=== PATIENT | male | born 1945 | race Caucasian/White ===

== ENCOUNTER 2024-03-07 02:31 | Observation (INO) | payer MEDICARE, OTHER, SELFPAY ==
[2024-03-06 21:23] VITALS: BP 141/70
[2024-03-06 22:47] LABS: % Basophils 0.9 % (0-2); % Eosinophils 2.5 % (0-6); % Immature Granulocytes 0.4 % (0-0.5); % Monocytes 7.9 % (1.7-9.3); % Neutrophils 43.3 % (42.2-75.2); Absolute Basophils 0.1 10^3/uL (0-0.2); Absolute Eosinophils 0.2 10^3/uL (0-0.7); Absolute Lymphocytes 3.4 10^3/uL (1.2-3.4); Absolute Monocytes 0.6 10^3/uL (0.1-0.6); Absolute Neutrophils 3.2 10^3/uL (1.4-6.5); Hematocrit 34.7 % (39.0-52.0); Hemoglobin 12.4 g/dL (13.0-18.0); Mean Corp Hgb Conc. 35.7 g/dL (33.0-37.0); Mean Corpuscular Hgb 33.4 pg (27.0-31.0); Mean Corpuscular Volume 93.5 fL (80.0-94.0); Mean Platelet Volume 8.9 fL (7.4-10.4); Nucleated Red Blood Cells % 0 % (-); Platelet Count 193 10^3/uL (130-400); Red Blood Cell Count 3.71 10^6/uL (4.70-6.10); Red Cell Dist. Width 12.6 % (11.5-14.5); White Blood Cell Count 7.5 10^3/uL (4.8-10.8)
[2024-03-06 23:10] LABS: Troponin I < 0.012 ng/ml
[2024-03-06 23:16] LABS: ALT (SGPT) 22 U/L (0-50); AST (SGOT) 36 U/L (17-59); Albumin 4.1 g/dl (3.5-5.0); Alkaline Phosphatase 91 U/L (38-126); Blood Urea Nitrogen 24 mg/dl (9-20); Calcium 9.2 mg/dl (8.4-10.2); Carbon Dioxide 23 mmol/L (22-30); Chloride 108 mmol/L (98-107); Glucose 105 mg/dl (70-99); Potassium 5.1 mmol/L (3.5-5.1); Sodium 139 mmol/L (135-145); Total Bilirubin 0.5 mg/dl (0.2-1.3); Total Protein 6.8 g/dl (6.3-8.2); eGFR > 60.00
[2024-03-06 23:20] VITALS: BP 119/64
[2024-03-07] MEDS: ASPIRIN 325 MG PO (00:07)
--- NOTE | 2024-03-07 00:23 | ED.GENMED ---
History of Present Illness
General
Chief Complaint: Chest Pain
Source: patient and spouse
Exam Limitations: none
Time Seen by Provider: 03/06/24 22:37
Nursing documentation reviewed up to this point in time: agreed with
History of Present Illness
History of Present Illness:
78-year-old male past medical history of Alzheimer's previous stroke with ongoing expressive aphasia, hypertension hyperlipidemia presenting to the emergency department today with concerns of intermittent chest pain today seems to be worse with
exertion but now sometimes without exertion. Does have a history of angina medication for this, patient believes its Imdur. This progressing over the last few days specifically worsened today. Denies specific shortness of breath nausea vomiting
diaphoresis.
Past History
Past History
ED Past Medical History: Cancer, CVA (With residual expressive aphasia), HTN and Hypercholesterolemia
ED Past Surgical History: Appendectomy and Other (prostate)
Social History
Tobacco: Former smoker
Alcohol: Occasional
Personal:
Living: with family
Employment: Retired
Family History
Family History: Other (His father had a stroke)
Review of Systems
Review of Systems
Allergies reviewed?: Yes
All Other Systems: ROS reviewed and negative except as documented in HPI and ROS
Phy Exam
Physical Exam
Physical Exam:
GENERAL: Alert , in no apparent distress
EYE: pupils equal and reactive
NECK: Supple, no significant adenopathy.
ENT: o/p clr, mmm.
CARDIAC: Regular rate and rhythm .
LUNGS: Clear breath sounds bilaterally, no acute respiratory distress, no wheezes/rales/rhonchi
ABDOMEN: Soft, without focal tenderness, no r/g, no cvat
NEUROLOGICAL: Alert and oriented, no focal neuro deficits
SKIN: Warm and dry, skin intact.
MUSCULOSKELETAL: No edema, well perfused.
PSYCH: Normal and appropriate interaction.
Scores
Heart Score for Chest Pain Patients
STEMI patient?: No
History: Moderately Suspicious
ECG: Nonspecific Repolarization
Age: >/= 65 years
Risk Factors: >/= 3 Risk Factors or History of CAD
Troponin: </= Normal Limit
Heart Score for Chest Pain Patients: 6
Heart Score Risk: 20.3% MACE over next 6 weeks
Course
Orders/Labs/Results
Orders:
Orders
03/06/24 21:20
Electrocardiogram (*1) Urgent
Reason for Study: Chest Pain
EKG- Treatment ONCE
03/06/24 21:29
CR Chest - 2 Views Urgent
Comment:
Reason For Exam: chest pain
03/06/24 22:39
CMP [Comprehensive Metabolic Panel] Urgent
Complete Blood Count/With Diff Urgent
Troponin I Urgent
03/06/24 23:57
Aspirin 325 mg PO NOW STA
Abnormal Lab Results
03/06/24
22:39
RBC 3.71 L 10^6/uL
(4.70-6.10)
Hgb 12.4 L g/dL
(13.0-18.0)
Hct 34.7 L %
(39.0-52.0)
MCH 33.4 H pg
(27.0-31.0)
Chloride 108 H mmol/L
(98-107)
BUN 24 H mg/dl
(9-20)
Glucose 105 H mg/dl
(70-99)
03/06/24 22:39
03/06/24 22:39
Vital Signs
Initial and Last Documented VS:
Initial Vital Signs
Temp Pulse Resp BP Pulse Ox
98 F 68 22 141/70 98
03/06/24 21:23 03/06/24 21:23 03/06/24 21:23 03/06/24 21:23 03/06/24 21:23
Last Documented Vital Signs
Temp Pulse Resp BP Pulse Ox
98 F 60 22 119/64 96
03/06/24 21:23 03/07/24 00:00 03/07/24 00:00 03/06/24 23:20 03/06/24 23:20
MDM/Problems Addressed
MDM/Problems Addressed:
78-year-old male presenting to the emergency department today with concerns of chest tightness which has been progressive recent significantly worse today. Does have a history of angina treated by cardiology. Has been taking medication for this.
Worsening chest pressure today initially exertional but then developing at rest. Here vital signs are normal patient in no distress labs unremarkable troponin negative chest x-ray not acute findings. Concern for potential unstable angina plan to
for monitoring overnight and assessment.
*Critical Care Note
Total Time (30-74mins, 75-104mins- exclusive of procedures): Not Applicable
ED Attending Note
-
Portions of this chart may have been created with voice recognition software.� Occasional wrong word or��sound alike� substitutions may have occurred due to the inherent limitations of voice recognition software.
Discharge Plan
Departure
Patient Disposition: Admit
Date of Disposition: 03/07/24
Time of Disposition: 00:27
Admit to: Telemetry
Admit to doctor: Tre
Presentation/result/management discussed w/ accepting MD/DO: Hospitalist
Patient with high blood pressure during this ER visit?: No
Condition: Good
Covid-19: Not Applicable
Discharge Problem:
Chest pain
Prescriptions:
No Action
esomeprazole magnesium [Nexium] 40 MG capsule,delayed release(DR/EC)
40 mg PO DAILY
ezetimibe 10 MG tablet
10 mg PO DAILY
omega-3 fatty acids-fish oil 1 EACH capsule
1 ea PO DAILY
cephalexin [Keflex] 500 MG capsule
500 mg PO Q6 Qty: 28 0RF
clindamycin HCl 300 MG capsule
300 mg PO TID Qty: 30 0RF
hydrocodone-acetaminophen [Vicodin] 1 EACH tablet
1 ea PO Q4HPRN PRN (Reason: pain) Qty: 10 0RF
Referrals:
Emiliano De La Rosa I., DO [Family Provider] -
Interventions
Interventions:
*Risk Screen - Suicide Last Done: 03/06/24 23:09
*General Assessment Last Done: 03/06/24 23:09
*Neglect/Abuse Screening Last Done: 03/06/24 23:09
ED- Fall Risk Assessment Last Done: 03/06/24 23:09
*ED COVID-19 Vaccine History Last Done: 03/06/24 23:09
ED- Cardiac Assessment Last Done: 03/06/24 22:42
Discharge Date and Time
Print Language: LUXEMBOURGER
[2024-03-07 01:00] VITALS: BP 130/64
--- NOTE | 2024-03-07 01:55 | HPS.HSE ---
Family Physician
-
Family Physician: Emiliano De La Rosa
Chief Complaint
-
Chest Pain
History of Present Illness
Patient is a 78y M with PMH significant for ASCVD, hypertension and dementia with aphasia who presents to ED complaining of chest pain. History obtained from the patient with some difficulty given his baseline aphasia. Additional history
obtained / confirmed with ED staff. Patient presents with chest discomfort. He states that he has intermittent chest discomfort at times but today's symptoms seemed more severe than usual. Patient states that he does not take SL NTG or similar
for his chest discomfort. He reports associated SOB and diaphoresis with his episodes of pain.
Patient presented to the ED for further evaluation. Work-up here thus far has been unremarkable.
He is pain free at present. He is referred for hospitalization for 'unstable angina'.
Medical History
Past Medical History
Past Medical History: Reports Other
Additional Past Medical History:
ASCVD (CVA / TIA)
Hypertension
Dementia with Aphasia
GERD
Obesity
Prostate Cancer
Past Surgical History: Reports Other
Additional Past Surgical History:
Prostatectomy
Left TKA
Social History
Tobacco: Former Smoker (Quit smoking > 10 years ago.)
Alcohol: Occasional
Family History
Family History: Not pertinent
Allergies / Home Medications
Allergies reflects when Allergies were last updated in [employer].
Home Medications with original date entered in [employer]
Allergy/Medication List:
Patient unable to confirm current medications.
Outpatient list reviewed via External Summary, but several entries state 'Not Taking / PRN' so unclear whether or not he is taking these.
If medication reconciliation has not been performed, why?: Medication List N/A
Review of Systems
-
History Source: Patient (limited ROS due to aphasia)
Constitutional: Denies Fever or Chills
Respiratory: Reports Trouble Breathing; Denies Cough
Cardiac: Reports Chest Pain and Diaphoresis; Denies Palpitations
Abdomen/GI: Denies Abdominal Pain, Nausea or Vomiting
Neurological: Denies Dizzy or Headache
Physical Exam
Vital Signs
Vital Signs
Temp Pulse Resp BP Pulse Ox
98 F 53 19 130/64 97
03/06/24 21:23 03/07/24 01:30 03/07/24 01:30 03/07/24 01:00 03/07/24 00:15
Physical Exam
General: Other (78y M in no acute distress.)
HEENT: Moist mucous membranes, PERRLA and Other (Thick neck.)
Respiratory: Clear; No Wheezes, Rales or Rhonchi
Cardiac: S1/S2 and Regular Rhythm; No Murmur
GI: Soft, Non Tender, Non Distended, Normal Bowel Sounds and Other (Obese)
Musculoskeletal: No Clubbing, No Cyanosis and No Edema
Neuro: Awake, Alert and Other (Expressive aphasia - chronic. No other deficits appreciated.)
Laboratory Results
-
03/06/24 22:39
03/06/24 22:39
Laboratory Results
Total Bilirubin 0.5 mg/dl (0.2-1.3) 03/06/24 22:39
AST 36 U/L (17-59) 03/06/24 22:39
ALT 22 U/L (0-50) 03/06/24 22:39
Alkaline Phosphatase 91 U/L (38-126) 03/06/24 22:39
Troponin I < 0.012 ng/ml 03/06/24 22:39
Impression/Plan
-
A/P: Patient is a 78y M with PMH significant for dementia with aphasia, hypertension and obesity who presents to ED complaining of chest pain.
Chest Pain
- Observe overnight for further evaluation and treatment.
- Work-up in the ED has been unremarkable thus far.
- EKG without ischemic change.
- Only one troponin has been done and this is undetectable.
- Continue to follow trop x 2-3 sets.
- Pain free at present - monitor for any new / recurrent symptoms.
- Cardio eval in the AM.
ASCVD / TIA
- Stable. Will Rx metoprolol and ASA for now - which appear on his outpatient list but are not yet confirmed.
- Follow for any new symptoms.
- AM lipids.
Benign Hypertension
- Stable. Continue metoprolol as noted above.
- Reconcile med s in the AM and continue other home meds at that time.
Dementia with Aphasia
- Stable. No new focal complaints. No agitation.
- Confirm mood medications and resume once med reconciliation is completed.
Obesity due to excess calories
- Affects all aspects of care.
- Encourage healthy diet and increased activity with goal of weight loss.
DVT Prophylaxis: Lovenox
Code Status: Full
[2024-03-07 02:56] VITALS: BP 147/81
[2024-03-07 02:59] VITALS: BMI 36.3
[2024-03-07 04:33] LABS: Hematocrit 34.8 % (39.0-52.0); Hemoglobin 12.2 g/dL (13.0-18.0); Mean Corp Hgb Conc. 35.1 g/dL (33.0-37.0); Mean Corpuscular Hgb 33.1 pg (27.0-31.0); Mean Corpuscular Volume 94.3 fL (80.0-94.0); Mean Platelet Volume 9.3 fL (7.4-10.4); Platelet Count 196 10^3/uL (130-400); Red Blood Cell Count 3.69 10^6/uL (4.70-6.10); Red Cell Dist. Width 12.5 % (11.5-14.5); White Blood Cell Count 7.2 10^3/uL (4.8-10.8)
[2024-03-07 04:55] LABS: Blood Urea Nitrogen 23 mg/dl (9-20); Calcium 8.7 mg/dl (8.4-10.2); Carbon Dioxide 24 mmol/L (22-30); Chloride 107 mmol/L (98-107); Estimated Creatinine Clearance 81 ml/min; Glucose 104 mg/dl (70-99); HDL Cholesterol 40 mg/dl; LDL Cholesterol, Calculated 126 mg/dl; Potassium 4.4 mmol/L (3.5-5.1); Sodium 138 mmol/L (135-145); Total Cholesterol 180 mg/dl (50-199); Triglyceride 72 mg/dl (10-149); Very Low Density Lipoprotein 14 mg/dl (0-30); eGFR > 60.00
[2024-03-07 05:07] LABS: Troponin I < 0.012 ng/ml
[2024-03-07 07:45] VITALS: BP 124/55
[2024-03-07] MEDS: PROTONIX 40 MG PO (08:54)
[2024-03-07] MEDS: LOW STRENGTH ASPIRIN 81 MG PO (08:54)
--- NOTE | 2024-03-07 09:33 | CON.CAR ---
Consultation
Consultation Request
Date/Time Consultation Requested: 03/07/24
Date/Time Consultation Performed: 03/07/24
Requesting Provider: Dr. Toledo
Performing Provider: Dr. Reyes
Reason for Consultation: Chest pain
Medical History
-
Chief Complaint: Chest pain
History of Present Illness:
78-year-old male (primarily known to Dr. Del Toro) with previous CVA with residual expressive aphasia, hypertension, hyperlipidemia, and obesity presenting with chest pain. The patient states that he had an episode of relatively sharp midsternal
chest pain yesterday that lasted for approximately 30 minutes; no recurrence. He denies shortness of breath, palpitations, or lower extremity swelling. There is no radiation to any other region.
Past Medical History
Past Medical History: CVA, GERD, HTN and Hypercholesterolemia
Past Surgical History: Orthopedic (Left TKA) and Urological (Prostatectomy)
Social History
Tobacco: Former Smoker
Alcohol: Occasional
Drug: None
Family History
Family History: Reviewed & Not Pertinent
Allergies / Home Medications
Allergy/AdvReac Type Severity Reaction Status Date / Time
venom-honey bee Allergy Severe Anaphylaxis Verified 12/02/22 10:14
[bee venom (honey bee)]
�Medication �Instructions �Recorded �Confirmed �Type
esomeprazole magnesium 40 mg 40 mg PO DAILY 01/26/11 01/26/11 History
capsule,delayed release (Nexium)
ezetimibe 10 mg tablet 10 mg PO DAILY 01/26/11 01/26/11 History
omega-3 fatty acids-fish oil 300 1 ea PO DAILY 01/26/11 01/26/11 History
mg-1,000 mg capsule
cephalexin 500 mg capsule (Keflex) 500 mg PO Q6 #28 caps 10/15/14 Rx
clindamycin HCl 300 mg capsule 300 mg PO TID #30 caps 05/12/15 Rx
hydrocodone 5 mg-acetaminophen 300 1 ea PO Q4HPRN PRN pain #10 tabs 05/12/15 Rx
mg tablet (Vicodin)
Review of Systems
-
All other systems: Negative unless noted
Physical Exam
Vital Signs
Temp Pulse Resp BP Pulse Ox
97.7 F 54 16 124/55 98
03/07/24 07:45 03/07/24 08:54 03/07/24 07:45 03/07/24 08:54 03/07/24 09:31
Lab Results
03/07/24 04:12
03/07/24 04:12
Troponin I < 0.012 ng/ml 03/07/24 04:12
Physical Exam
General: No Apparent Distress and Comfortable
HEENT: Anicteric
Respiratory: Clear
Cardiac: S1/S2 and Regular Rhythm
Breast: N/A
GI: Soft
Rectal: Deferred by Provider
Musculoskeletal: No Clubbing, No Cyanosis and No Edema
Skin: Warm and Dry
Neuro: AO x 3
Psych: Calm
Impression / Plan
-
78-year-old male (primarily known to Dr. Del Toro) with previous CVA with residual expressive aphasia, hypertension, hyperlipidemia, and obesity presenting with chest pain. The patient states that he had an episode of relatively sharp midsternal
chest pain yesterday that lasted for approximately 30 minutes; no recurrence.
Chest pain:
-Most likely 9-cardiac; EKG and cardiac enzymes are unremarkable.
-The patient had a normal stress test 1 year ago 09/14/2022.
-Patient can follow-up with cardiology as an outpatient to determine whether repeat stress testing is indicated, especially if symptoms recur.
Hypertension:
-Blood pressure is controlled
-Continue current dose of Toprol-XL.
Dyslipidemia:
-Statin-intolerant.
-Continue with aggressive lifestyle/dietary management.
Obesity:
-Weight loss and regular exercise recommended.
Data Reviewed
-
EKG: Report Reviewed by me (Sinus bradycardia at 55 bpm)
Medical Tests (Nuc Med, Echo etc): Report Reviewed by me (Lexiscan nuclear stress test (12/09/2022): Normal myocardial perfusion.)
Labs: Labs Reviewed by me
Old Records: Reviewed (Cardiology office note 11/06/2023)
--- NOTE | 2024-03-07 11:08 | W.PN.HOSP.TC ---
Today's Communication/Plan
-
plan to dc home
Assessment / Plan
Assessment / Plan
NAD, comfortable, walking around the room
scleral anicteric
mmm
rrr, s1/s2
CTABL
soft nt, nd, bs+
no peripheral edema
expressive aphasia, moving extremities spontaneously
chest pain, atypical, noncardiac, evaluated by cardiology, plan to dc home with outpaitent follow up
htn continue antihypertensives
hld dietary/lifestyle modification
obesity dietary and lifestyle modification
dc home.
Anticipated Discharge: Today
Subjective/Interval History
-
Date of Service: March 07, 2024
seen and examined.
no new complaints.
no acute overnight events.
walking around his room. comfortable. without chest discomfort.
Objective Data
-
Labs:
Laboratory Results
03/06/24 03/07/24
22:39 04:12
WBC 7.2
Hgb 12.2 L
Hct 34.8 L
Plt Count 196
Sodium 139 138
Potassium 5.1 4.4
Chloride 108 H 107
Carbon Dioxide 23 24
BUN 24 H 23 H
Creatinine 0.8 0.9
Glucose 105 H 104 H
Calcium 9.2 8.7
Total Bilirubin 0.5
AST 36
ALT 22
Alkaline Phosphatase 91
Vital Signs:
Vital Signs
Temp Pulse Resp BP Pulse Ox
97.7 F 54 16 124/55 98
03/07/24 07:45 03/07/24 08:54 03/07/24 07:45 03/07/24 08:54 03/07/24 09:31
[2024-03-07 11:54] VITALS: BP 158/68
--- NOTE | 2024-03-07 12:04 | W.DCSUMMARY ---
Discharge Summary
Discharge Data
Date of Admission: 03/07/24
Date of Discharge: 03/07/24
-
Pending Results: No
Hospital Course
Presenting with chest discomfort, relatively short midsternal chest pain that began yesterday lasted for approximately 30 minutes. EKG nonischemic. Troponin negative. September 14, 2022 had a normal stress test. Was evaluated by cardiology
recommened no further work up and to follow up with cardiology as an outpatient to determine if repeat stress test is indicated especially if symptoms recur.
Discharge Plan
-
Patient Disposition: Home (Routine Discharge)
Discharge Diagnosis/Procedures: CVA with residual expressive aphasia, hypertension, hyperlipidemia, and obesity
Diet: Regular, Low Fat, Low Cholesterol, Low Sodium and No added salt
Activity: As tolerated
Driving Restrictions: As prior to admission
Bathing Restrictions: None
Activity Restrictions/Additional Instructions:
Presenting with chest discomfort, relatively short midsternal chest pain that began yesterday lasted for approximately 30 minutes. EKG nonischemic. Troponin negative. September 14, 2022 had a normal stress test. Was evaluated by cardiology
recommened no further work up and to follow up with cardiology as an outpatient to determine if repeat stress test is indicated especially if symptoms recur.
Instructions: Chest Pain NON-[facility] [employer] Follow Up, BLOOD PRESSURE
Referrals:
Emiliano De La Rosa DO [Family Provider] -
Felice Briscoe MD [Active] - in one week
Prescriptions:
Continued
metoprolol succinate [Toprol XL] 25 mg Tablet Extended Release 24 Hr
25 mg PO DAILY
memantine 10 mg Tablet
10 mg PO BID
lisinopril 10 mg Tablet
10 mg PO DAILY
aspirin 81 mg Tablet,Chewable
81 mg PO DAILY
Discharge Orders:
Discharge Patient (As Directed); Ordered 03/07/24
Ordered By: Elan Patel
Discharge Date and Time
Print Language: SOMALI
== END 2024-03-07 12:42 | disposition home or self-care (01) ==
LOC: 2 NORTH 02:31
PROVIDERS: ADMITTING PHYSICIAN Hospitalist; ATTENDING PHYSICIAN Hospitalist; EMERGENCY PHYSICIAN Emergency Medicine; FAMILY PHYSICIAN Internal Medicine; OTHER PHYSICIAN Internal Medicine
DX: R07.2 Precordial pain (principal); R07.9 Chest pain, unspecified; G30.9 Alzheimer's disease, unspecified; F02.80 Dementia in other diseases classified elsewhere, unspecified severity, without behavioral disturbance, psychotic disturbance, mood disturbance, and anxiety; I10 Essential (primary) hypertension; E78.5 Hyperlipidemia, unspecified; K21.9 Gastro-esophageal reflux disease without esophagitis; E66.09 Other obesity due to excess calories; I25.110 Atherosclerotic heart disease of native coronary artery with unstable angina pectoris; R06.02 Shortness of breath; R61 Generalized hyperhidrosis; R07.89 Other chest pain; I69.320 Aphasia following cerebral infarction; Z85.46 Personal history of malignant neoplasm of prostate; Z82.3 Family history of stroke; Z87.891 Personal history of nicotine dependence
CPT/HCPCS: 71046; 80048; 80053; 80061; 84484; 85025; 85027; 93005; 99285; G0378

== ENCOUNTER 2024-08-21 12:50 | Outpatient (RCR) | payer MEDICARE, OTHER, SELFPAY | END 2024-08-21 23:59 | disposition home or self-care (01) | LOC: RST 12:50 | DX: G31.01 Pick's disease (principal); F02.80 Dementia in other diseases classified elsewhere, unspecified severity, without behavioral disturbance, psychotic disturbance, mood disturbance, and anxiety; R47.02 Dysphasia | CPT/HCPCS: 92507; 92523 ==

== ENCOUNTER 2024-09-23 13:39 | Outpatient (RCR) | payer MEDICARE, OTHER, SELFPAY | END 2024-09-23 23:59 | disposition home or self-care (01) | LOC: RST 13:39 | PROVIDERS: ATTENDING PHYSICIAN Student in an Organized Health Care Education/Training Program; FAMILY PHYSICIAN Internal Medicine | DX: G31.01 Pick's disease (principal); F02.80 Dementia in other diseases classified elsewhere, unspecified severity, without behavioral disturbance, psychotic disturbance, mood disturbance, and anxiety; R47.02 Dysphasia | CPT/HCPCS: 92507 ==

== ENCOUNTER 2024-10-14 10:53 | Outpatient (RCR) | payer MEDICARE, OTHER, SELFPAY | END 2024-10-14 23:59 | disposition home or self-care (01) | LOC: RST 10:53 | PROVIDERS: ATTENDING PHYSICIAN Student in an Organized Health Care Education/Training Program; FAMILY PHYSICIAN Internal Medicine | DX: G31.01 Pick's disease (principal); F02.80 Dementia in other diseases classified elsewhere, unspecified severity, without behavioral disturbance, psychotic disturbance, mood disturbance, and anxiety; R47.02 Dysphasia | CPT/HCPCS: 92507 ==

== ENCOUNTER → 2025-08-08 09:04 | Outpatient (REF) | payer MEDICARE, OTHER, SELFPAY ==
[2025-08-08 10:28] LABS: Hematocrit 45.7 % (39.0-52.0); Hemoglobin 15.6 g/dL (13.0-18.0); Mean Corp Hgb Conc. 34.1 g/dL (33.0-37.0); Mean Corpuscular Volume 94.2 fL (80.0-94.0); Platelet Count 188 10^3/uL (130-400); Red Cell Dist. Width 11.9 % (11.5-14.5)
[2025-08-08 10:52] LABS: ALT (SGPT) 24 U/L (0-50); AST (SGOT) 25 U/L (17-59); Albumin 4.5 g/dl (3.5-5.0); Alkaline Phosphatase 87 U/L (38-126); Blood Urea Nitrogen 16 mg/dl (9-20); Calcium 9.5 mg/dl (8.4-10.2); Carbon Dioxide 28 mmol/L (22-30); Chloride 103 mmol/L (98-107); Glucose 98 mg/dl (70-99); HDL Cholesterol 43 mg/dl; LDL Cholesterol, Calculated 139 mg/dl; Potassium 4.4 mmol/L (3.5-5.1); Sodium 136 mmol/L (135-145); Total Protein 7.4 g/dl (6.3-8.2); Very Low Density Lipoprotein 19 mg/dl (0-30); eGFR > 60.00
[2025-08-08 11:27] LABS: PSA, Total - Screen < 0.06 ng/ml (0.0-4.0)
[2025-08-08 12:48] LABS: Nucleated Red Blood Cells % 0 % (-)
== END ==
LOC: REG 09:04
PROVIDERS: ATTENDING PHYSICIAN Internal Medicine
DX: I10 Essential (primary) hypertension (principal); E78.2 Mixed hyperlipidemia; R53.83 Other fatigue; R35.1 Nocturia; I25.10 Atherosclerotic heart disease of native coronary artery without angina pectoris
CPT/HCPCS: 36415; 80053; 80061; 84443; 85025; G0103